=== PATIENT | female | born 1935 | race Caucasian/White ===

== ENCOUNTER 2016-07-11 13:03 | Emergency (ER) | payer MEDICARE, BC ==
[2016-07-11] MEDS ORDERED: SODIUM CHLORIDE 0.9% 500 ML IV ONE (14:25)
[2016-07-11] MEDS ORDERED: ONDANSETRON ODT 4 MG TAB ONE ×2 (16:06→17:30)
[2016-07-11] MEDS ORDERED: MORPHINE 4 MG/ML SYR ONE (16:51)
== END 2016-07-11 17:24 | disposition home or self-care (01) ==
LOC: ER 13:03
DX: S09.90XA Unspecified injury of head, initial encounter (principal); R55 Syncope and collapse; R11.2 Nausea with vomiting, unspecified; W19.XXXA Unspecified fall, initial encounter; Y92.009 Unspecified place in unspecified non-institutional (private) residence as the place of occurrence of the external cause
CPT/HCPCS: 36415; 70450; 80053; 82947; 83690; 85025; 85610; 85730; 93005; 96360; 96372; 99284; J2270; J7040